=== PATIENT | female | born 1970 ===

== ENCOUNTER 2017-03-06 20:08 | Emergency (ER) | payer SELFPAY ==
[2017-03-06 20:48] VITALS: BP 106/73; TEMP 98.5; O2SAT 99
[2017-03-06 21:01] VITALS: RESP 20
--- NOTE | 2017-03-06 21:32 | ED PDOC ---
HPI: Back Time Seen by Provider: 03/06/17 21:11 Chief Complaint (Nursing): Back Pain Chief Complaint (Provider): Lower back pain History Per: Patient History/Exam Limitations: no limitations Onset/Duration Of Symptoms: Days (3 days) Current Symptoms Are (Timing): Still Present Additional Complaint(s): Chary Hernández, a 46 year old female presents to the ED for Lower back pain. The patient state that her back pain is associated with dysuria, frequency , urgency and hematuria. Denies fever, incontinence, nausea, vomiting, flank pain, abdominal pain, hx of kidney stones. Past Medical History Reviewed: Historical Data, Nursing Documentation, Vital Signs Vital Signs: Last Vital Signs Temp 98.5 F 03/06/17 20:59 Pulse 95 H 03/06/17 20:59 Resp 20 03/06/17 20:59 BP 106/73 03/06/17 20:59 Pulse Ox 99 03/06/17 20:59 - Medical History PMH: Denies: Kidney Stones - Surgical History Surgical History: No Surg Hx - Family History Family History: States: No Known Family Hx - Home Medications Home Medications: Ambulatory Orders Medication Instructions Recorded Nitrofurantoin Macrocrystals 100 mg PO BID #14 cap 03/06/17 [Macrobid] Phenazopyridine [Phenazopyridine 100 mg PO BID #6 tab 03/06/17 HCl] - Allergies Allergies/Adverse Reactions: Allergies Allergy/AdvReac Type Severity Reaction Status Date / Time No Known Allergies Allergy Verified 03/06/17 20:35 Review of Systems ROS Statement: Except As Marked, All Systems Reviewed And Found Negative Constitutional: Negative for: Fever Gastrointestinal: Negative for: Nausea, Vomiting Genitourinary Female: Positive for: Dysuria, Frequency, Hematuria. Negative for : Incontinence Musculoskeletal: Positive for: Back Pain (Lower back pain) Physical Exam - Reviewed Nursing Documentation Reviewed: Yes Vital Signs Reviewed: Yes - Physical Exam Appears: Positive for: Non-toxic, No Acute Distress Head Exam: Positive for: ATRAUMATIC, NORMAL INSPECTION, NORMOCEPHALIC Skin: Positive for: Normal Color, Warm, DRY Cardiovascular/Chest: Positive for: Regular Rate, Rhythm, Chest Non Tender Respiratory: Positive for: CNT, Normal Breath Sounds Gastrointestinal/Abdominal: Positive for: Normal Exam, Bowel Sounds, Soft. Negative for: Tenderness Back: Positive for: Normal Inspection. Negative for: L CVA Tenderness, R CVA Tenderness Extremity: Positive for: Normal ROM. Negative for: Tenderness, Deformity, Swelling Neurologic/Psych: Positive for: Alert, Oriented - Laboratory Results Urine POC: Negative Urine dip results: Positive for: Leukocyte Esterase (small), Blood (small). Negative for: Nitrate, Ketones, Glucose, Bilirubin, Protein - ECG O2 Sat by Pulse Oximetry: 99 (RA) Pulse Ox Interpretation: Normal - Progress ED Course And Treament: Urine culture sent. Medical Decision Making Medical Decision Makin:11 Initial Impression: 46 year old female presenting to the ED for lower back pain. Initial Plan: * Upreg * Urine dipstick * Urine culture Scribe Attestation Documented by Holly Vazquez acting as a scribe for Lalito Loco PA-C. Provider Attestation All medical record entries made by the Scribe were at my direction and personally dictated by me. I have reviewed the chart and agree that the record accurately reflects my personal performance of the history, physical exam, medical decision making, and the department course for this patient. I have also personally directed, reviewed, and agree with the discharge instructions and disposition. Disposition - Clinical Impression Clinical Impression: UTI (urinary tract infection) - Patient ED Disposition Is Patient to be Admitted: No - Disposition Referrals: [facility] [Outside] Disposition: Routine/Home Disposition Time: 21:57 Condition: STABLE Prescriptions: Nitrofurantoin Macrocrystals [Macrobid] 100 mg PO BID #14 cap Phenazopyridine [Phenazopyridine HCl] 100 mg PO BID #6 tab Instructions: Urinary Tract Infection in Women (ED) Print Language: [place]
[2017-03-06 22:33] VITALS: PULSE 78
== END 2017-03-06 22:20 | disposition home or self-care (01) ==
LOC: H.ER 20:08
DX: N39.0 Urinary tract infection, site not specified (principal); M54.5 Low back pain